=== PATIENT | female | born 1995 | race Caucasian/White ===

== ENCOUNTER 2018-01-14 00:30 | Emergency (ER) | payer SELFPAY ==
[~2018-01-14] VITALS: Ht 162.6 cm; Wt 75.3 kg
[2018-01-14 00:38] VITALS: BP 122/81; Ht 162.6 cm; Wt 75.3 kg
== END 2018-01-14 01:21 | disposition home or self-care (01) ==
LOC: ED 00:30
DX: R09.89 Other specified symptoms and signs involving the circulatory and respiratory systems (principal); R23.3 Spontaneous ecchymoses; F17.210 Nicotine dependence, cigarettes, uncomplicated
CPT/HCPCS: 99406

== ENCOUNTER 2018-04-27 22:21 | Emergency (ER) | payer SELFPAY ==
[~2018-04-27] VITALS: Ht 162.6 cm; Wt 77.1 kg
[2018-04-27 22:50] VITALS: Ht 162.6 cm; Wt 77.1 kg
[2018-04-28 00:19] VITALS: BP 120/78
== END 2018-04-28 00:19 | disposition home or self-care (01) ==
LOC: ED 22:21
DX: H01.004 Unspecified blepharitis left upper eyelid (principal); H01.001 Unspecified blepharitis right upper eyelid

== ENCOUNTER 2018-05-23 11:27 | Emergency (ER) | payer OTHER ==
[~2018-05-23] VITALS: Ht 162.6 cm; Wt 77.1 kg
[2018-05-23 11:33] VITALS: Ht 162.6 cm; Wt 77.1 kg
[2018-05-23 12:24] VITALS: BP 120/74
== END 2018-05-23 12:24 | disposition home or self-care (01) ==
LOC: ED 11:27
DX: H10.9 Unspecified conjunctivitis (principal)

== ENCOUNTER 2018-11-17 22:33 | Emergency (ER) | payer OTHER ==
[~2018-11-17] VITALS: Ht 160 cm; Wt 72.6 kg
[2018-11-17 22:53] VITALS: Ht 160 cm; Wt 72.6 kg
[2018-11-18 00:33] VITALS: BP 128/79
== END 2018-11-18 00:33 | disposition home or self-care (01) ==
LOC: ED 22:33
DX: S16.1XXA Strain of muscle, fascia and tendon at neck level, initial encounter (principal); S39.012A Strain of muscle, fascia and tendon of lower back, initial encounter; S63.92XA Sprain of unspecified part of left wrist and hand, initial encounter; S09.8XXA Other specified injuries of head, initial encounter; V43.52XA Car driver injured in collision with other type car in traffic accident, initial encounter; Y93.I9 Activity, other involving external motion; Y92.488 Other paved roadways as the place of occurrence of the external cause; Y99.8 Other external cause status
CPT/HCPCS: A4570

== ENCOUNTER 2019-05-29 21:41 | Emergency (ER) | payer SELFPAY ==
[~2019-05-29] VITALS: Ht 160 cm; Wt 73.5 kg
[2019-05-29 21:49] VITALS: Ht 160 cm; Wt 73.5 kg
[2019-05-29 22:30] VITALS: BP 111/70
== END 2019-05-29 22:30 | disposition home or self-care (01) ==
LOC: ED 21:41
DX: J36 Peritonsillar abscess (principal)

== ENCOUNTER 2019-10-31 11:46 | Emergency (ER) | payer MEDICAID ==
[~2019-10-31] VITALS: Ht 160 cm; Wt 73.0 kg
[2019-10-31 11:49] VITALS: BP 103/68; Ht 160 cm; Wt 73.0 kg
== END 2019-10-31 12:30 | disposition home or self-care (01) ==
LOC: ED 11:46
DX: S01.81XA Laceration without foreign body of other part of head, initial encounter (principal); W25.XXXA Contact with sharp glass, initial encounter; Y93.89 Activity, other specified; Y92.89 Other specified places as the place of occurrence of the external cause; Y99.8 Other external cause status